=== PATIENT | male | born 1945 | race Hispanic/Latino ===

== ENCOUNTER 2021-11-22 11:34 | Emergency (ER) | payer MEDICARE, SELFPAY ==
[2021-11-22] MEDS ORDERED: Acetaminophen 500 MG TAB ONE (11:45)
[2021-11-22] MEDS ORDERED: Bacitracin 1 PK ONE (12:49)
== END 2021-11-22 13:00 | disposition home or self-care (01) ==
LOC: BURERS 11:34
DX: S00.03XA Contusion of scalp, initial encounter (principal); S50.311A Abrasion of right elbow, initial encounter; S60.511A Abrasion of right hand, initial encounter; I10 Essential (primary) hypertension; G40.909 Epilepsy, unspecified, not intractable, without status epilepticus; M10.9 Gout, unspecified; W18.30XA Fall on same level, unspecified, initial encounter
CPT/HCPCS: 70450; 72100; 72125